=== PATIENT | male | born 1955 | race Caucasian/White ===

== ENCOUNTER → 2017-05-25 | Outpatient (CLI) | payer BC ==
[~2017-05-25] MED LIST: ALPR-411 PO; DPKSR500 PO; HYDR0.5T PO; KPP/750 PO; PRLSR20 PO
[2017-05-25 12:17] LABS: BASO % 0.3 %; BASO ABS # 0.03 K/uL (0-0.2); COMPLETE YES; EOS % 2.5 %; HEMATOCRIT 44.3 % (42-52); IG% 0.3 %; LYMPH % 17.3 %; LYMPH ABS # 1.54 K/uL (1.2-3.4); MEAN CELL VOLUME 83.4 fL (80-100); MEAN CORPUSCULAR HEMOGLOBIN 30.7 pg (25-34); MEAN CORPUSCULAR HGB CONC 36.8 g/dl (32-36); MEAN PLATELET VOLUME 9.9 fL (7.4-10.4); MONO % 8.3 %; NEUT % 71.3 %; PLATELET COUNT 206 K/uL (130-400); RED BLOOD COUNT 5.31 M/uL (4.7-6.1); WHITE BLOOD COUNT 8.91 K/uL (4.8-10.8)
[2017-05-25 12:25] LABS: ALT/SGPT 23 U/L (12-78); BLOOD UREA NITROGEN 15 mg/dl (7-18); BUN/CREATININE RATIO 14.6 (10-20); CALCIUM 8.5 mg/dl (8.5-10.1); CARBON DIOXIDE 30 mmol/L (21-32); CHLORIDE 104 mmol/L (98-107); CHOLESTEROL 178 mg/dl (0-200); CREATININE 1.01 mg/dl (0.60-1.40); GLUCOSE 88 mg/dl (70-99); MAGNESIUM 1.9 mg/dl (1.8-2.4); POTASSIUM 4.2 mmol/L (3.5-5.1); SODIUM 140 mmol/L (136-145); TRIGLYCERIDES 119 mg/dl (0-150); VERY LOW DENSITY LIPOPROT CALC 24 mg/dl
[2017-05-25 12:38] LABS: ALKALINE PHOSPHATASE 84 U/L (45-117); AST/SGOT 17 U/L (15-37); CHOLESTEROL/HDL RATIO 3.4; HDL CHOLESTEROL 53 mg/dl; LDL CHOLESTEROL CALCULATED 101 mg/dl
== END | disposition home or self-care (01) ==
LOC: C.LABBFT 10:35
PROVIDERS: ATTEND Nurse Practitioner Family
DX: E78.00 Pure hypercholesterolemia, unspecified (principal); I10 Essential (primary) hypertension; F32.9 Major depressive disorder, single episode, unspecified; G40.909 Epilepsy, unspecified, not intractable, without status epilepticus; R51 Headache

== ENCOUNTER → 2017-06-01 | Outpatient (CLI) | payer BC ==
--- NOTE | 2017-06-01 10:49 | DIAGNOSTIC IMAGING REPORT ---
Brain MRI WITHOUT CONTRAST HISTORY: G40.909 Seizure [id number] TECHNIQUE: Multiplanar multisequence MRI of the brain was performed without the use of contrast. COMPARISON STUDY: Brain MRI 03/11/2010. FINDINGS: There is no mass, hematoma, midline shift, or acute infarct. The paranasal sinuses are clear. The mastoid air cells are clear. The ventricles and sulci demonstrate mild age-related involutional changes. There are a few foci of T2 hyperintensity seen within the periventricular and subcortical white matter are nonspecific but suggestive of mild microvascular ischemic changes. This remains unchanged. The major vascular flow voids at the skull base are well-maintained. 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 IMPRESSION: No significant change compared to the prior study. No acute intracranial abnormality. Electronically signed by: Pierce Crow M.D. 06/01/2017 10:47 AM Dictated Date/Time: 06/01/2017 10:38 AM
== END | disposition home or self-care (01) ==
LOC: C.MRI 09:48
PROVIDERS: ATTEND Nurse Practitioner Family
DX: R51 Headache (principal); G40.909 Epilepsy, unspecified, not intractable, without status epilepticus